=== PATIENT | female | born 2000 | race Caucasian/White ===

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

== ENCOUNTER 2020-06-08 12:51 | Outpatient (CLI) | payer OTHER ==
[~2020-06-08 12:51] MED LIST: Magnevist 469MG/ML 20 ML VIAL ONE
== END 2020-06-08 12:52 | disposition home or self-care (01) ==
LOC: BICMRI 12:51
PROVIDERS: ATTEND Nurse Practitioner Acute Care
DX: G40.209 Localization-related (focal) (partial) symptomatic epilepsy and epileptic syndromes with complex partial seizures, not intractable, without status epilepticus (principal)
CPT/HCPCS: 70553; A9579